=== PATIENT | male | born 1945 | race African-American/Black ===

== ENCOUNTER 2016-05-08 05:32 | Emergency (ER) | payer OTHER ==
[~2016-05-08] VITALS: Ht 185.4 cm; Wt 101.2 kg
--- NOTE | ~2016-05-08 | EKG ---
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
[~2016-05-08 05:32] MED LIST: ACETAMINOPHEN325 M1 PO; AMLODIPINE BESY10 MG PO; AMOXICILLIN/POTASSIU PO; ARANESP100 MCG/0.; ASPIRIN EC81 M1 PO; CALCIUM OYSTER500 MG PO; CARDURA4 MG PO; CARVEDILOL3.125 MG PO; COLACE 100 MG100 MG PO; CRESTOR40 MG PO; DIOVAN320 MG PO; FUROSEMIDE 40 M40 M1 PO; HUMALOG100 UNIT/1 SC; LANTUS SC; LISINOPRIL40 MG PO; NEXIUM20 M1 PO; NITROGLYCERIN0.4 MG SL; VITAMIN D400 UNI4 PO; [UNRECOGNIZED DRUG - OTHER]
[2016-05-08 06:22] LABS: HEMATOCRIT 33.1 % (42.0-52.0); HEMOGLOBIN 10.8 gm/dL (14.0-18.0); MCHC 32.7 % (28.0-37.0); PLATELET COUNT 146 thou/uL (150-400); RDW 16.1 % (10.5-14.5); WBC 14.8 thou/uL (4.0-11.0)
[2016-05-08 06:23] LABS: MANUAL DIFF YES
[2016-05-08 06:33] LABS: CALCIUM 8.9 mg/dL (8.5-10.1); CREATININE 2.3 mg/dL (0.6-1.3); POTASSIUM 4.7 mmol/L (3.5-5.1)
[2016-05-08 06:45] LABS: ABSOLUTE NEUTROPHILS 12.4 thou/uL (1.4-8.2); MAGNESIUM 1.6 mg/dL (1.8-2.4); TOTAL CELL COUNT 100
[2016-05-08 06:46] LABS: ANISOCYTOSIS 1+
[2016-05-08 07:34] LABS: URINE BILIRUBIN NEGATIVE (Negative); URINE BLOOD TRACE (Negative); URINE COLOR YELLOW; URINE GLUCOSE-RANDOM* NEGATIVE (Negative); URINE KETONES NEGATIVE (Negative); URINE LEUKOCYTES-REFLEX NEGATIVE (Negative); URINE PROTEIN (DIPSTICK) 1+ (Negative); URINE UROBILINOGEN 0.2 E.U./dl (0.2-1.0)
[2016-05-08] MEDS ORDERED: LASIX 40 MG TAB40 MG PO (07:41)
[2016-05-08] MEDS ORDERED: IRON325 PO (07:42)
[2016-05-08] MEDS ORDERED: ALLOPURINOL 10100 M1 PO (07:42)
[2016-05-08] MEDS ORDERED: ROCALTROL0.25 MCG PO (07:42)
[2016-05-08 08:13] LABS: SQUAMOUS 4-10 Moderate /LPF (0-3)
[2016-05-08 08:14] LABS: CASTS None Seen /LPF (None Seen); CRYSTALS None Seen /LPF (None Seen); URINE RBC 0-2 Rare /HPF (0-2); URINE WBC-REFLEX 0-5 Rare /HPF (0-5)
[2016-05-08 09:08] VITALS: BP 158/60
[2016-06-08] MEDS ORDERED: KEFLEX500 MG PO (09:16)
[2016-06-28] MEDS ORDERED: NORVASC5 MG PO (13:35)
[2016-06-28] MEDS ORDERED: LAC-HYDRIN FIV113 GM TOP (13:35)
[2016-06-28] MEDS ORDERED: DULCOLAX5 MG PO (13:36)
[2016-06-28] MEDS ORDERED: VITAMIN D2000 UNIT PO (13:37)
[2016-06-28] MEDS ORDERED: COZAAR 25 MG TA25 M1 PO (13:40)
[2016-06-28] MEDS ORDERED: CRESTOR40 MG PO (13:41)
[2016-06-28] MEDS ORDERED: NITROGLYCERIN0.4 MG SUBLING (13:41)
[2016-06-28] MEDS ORDERED: FLOXIN OTI0.3 %/5 M1 OT (13:41)
== END 2016-05-08 09:09 | disposition home or self-care (01) ==
LOC: ER 05:32
PROVIDERS: Emergency Medicine
DX: N18.9 Chronic kidney disease, unspecified (principal); E16.2 Hypoglycemia, unspecified; I47.2 Ventricular tachycardia

== ENCOUNTER 2016-08-02 10:05 | Emergency (ER) | payer OTHER ==
[~2016-08-02] VITALS: Ht 185.4 cm; Wt 101.2 kg
[~2016-08-02 10:05] MED LIST changes: +ALLOPURINOL 10100 M1 PO; +COZAAR 25 MG TA25 M1 PO; +DULCOLAX5 MG PO; +FLOXIN OTI0.3 %/5 M1 OT; +IRON325 PO; +KEFLEX500 MG PO; +LAC-HYDRIN FIV113 GM TOP; +LASIX 40 MG TAB40 MG PO; +NITROGLYCERIN0.4 MG SUBLING; +NORVASC5 MG PO; +ROCALTROL0.25 MCG PO; +VITAMIN D2000 UNIT PO
[2016-08-02 11:31] LABS: ABSOLUTE NEUTROPHILS 6.3 thou/uL (1.4-8.2); BASOPHILS 1.1 % (0.0-2.0); EOSINOPHILS 3.2 % (0.0-3.0); HEMATOCRIT 29.7 % (42.0-52.0); LYMPHOCYTES 12.2 % (24.0-44.0); MANUAL DIFF NO; MCH 29.9 pg (26.0-34.0); MCHC 33.7 g/dL (28.0-37.0); MCV 88.9 fL (80.0-100.0); MONOCYTES 7.7 % (1.0-8.0); PLATELET COUNT 156 thou/uL (150-400); POLYS 75.8 % (36.0-66.0); RBC 3.34 mil/uL (4.50-6.00); RDW 13.3 % (10.5-14.5); WBC 8.3 thou/uL (4.0-11.0)
[2016-08-02 11:37] LABS: CALCIUM 8.4 mg/dL (8.5-10.1); CREATININE 2.4 mg/dL (0.6-1.3); POTASSIUM 4.2 mmol/L (3.5-5.1)
[2016-08-02 11:48] LABS: ALBUMIN 2.5 g/dL (3.4-5.0); TOTAL BILIRUBIN 0.2 mg/dL (<0.1-1.0); TOTAL PROTEIN 5.9 g/dL (6.4-8.2)
[2016-08-02 12:12] LABS: CLARITY CLOUDY; COLOR RED; TOTAL VOLUME 15 mL
[2016-08-02 12:36] LABS: BF NUCLEATED CELLS 2581; BF RBC 8599
[2016-08-02 13:16] LABS: BF NEUTROPHILS 83; MANUAL DIFF YES
[2016-08-02 13:48] VITALS: BP 144/66
[2016-08-03 03:06] LABS: BF CRYSTALS None seen (None seen)
== END 2016-08-02 13:49 | disposition home or self-care (01) ==
LOC: ER 10:05
PROVIDERS: Physician Assistant
DX: M77.52 Other enthesopathy of left foot and ankle (principal); E11.9 Type 2 diabetes mellitus without complications; I10 Essential (primary) hypertension; E78.00 Pure hypercholesterolemia, unspecified; Z87.891 Personal history of nicotine dependence; Z79.4 Long term (current) use of insulin

== ENCOUNTER → 2016-08-20 | Outpatient (CLI) | payer OTHER | LOC: HYPER 07:09 | DX: E11.621 Type 2 diabetes mellitus with foot ulcer (principal); L97.421 Non-pressure chronic ulcer of left heel and midfoot limited to breakdown of skin; I70.245 Atherosclerosis of native arteries of left leg with ulceration of other part of foot; I10 Essential (primary) hypertension; E78.00 Pure hypercholesterolemia, unspecified; Z87.891 Personal history of nicotine dependence ==

== ENCOUNTER → 2016-09-07 | Outpatient (CLI) | payer OTHER | LOC: HYPER 08-27 07:09 | DX: E11.621 Type 2 diabetes mellitus with foot ulcer (principal); L97.421 Non-pressure chronic ulcer of left heel and midfoot limited to breakdown of skin; I70.245 Atherosclerosis of native arteries of left leg with ulceration of other part of foot; I10 Essential (primary) hypertension; E78.00 Pure hypercholesterolemia, unspecified; Z79.4 Long term (current) use of insulin; Z87.891 Personal history of nicotine dependence ==

== ENCOUNTER → 2016-09-30 | Outpatient (CLI) | payer OTHER | LOC: HYPER 07:05 | DX: E11.621 Type 2 diabetes mellitus with foot ulcer (principal); L97.422 Non-pressure chronic ulcer of left heel and midfoot with fat layer exposed; I70.245 Atherosclerosis of native arteries of left leg with ulceration of other part of foot; Z79.4 Long term (current) use of insulin; I10 Essential (primary) hypertension; E78.00 Pure hypercholesterolemia, unspecified; Z87.891 Personal history of nicotine dependence ==

== ENCOUNTER → 2016-10-21 | Outpatient (CLI) | payer OTHER | LOC: HYPER 10-14 14:20 | DX: E11.621 Type 2 diabetes mellitus with foot ulcer (principal); L97.422 Non-pressure chronic ulcer of left heel and midfoot with fat layer exposed; I70.244 Atherosclerosis of native arteries of left leg with ulceration of heel and midfoot; Z79.4 Long term (current) use of insulin; I10 Essential (primary) hypertension; E78.00 Pure hypercholesterolemia, unspecified; Z87.891 Personal history of nicotine dependence ==

== ENCOUNTER → 2016-11-09 | Outpatient (CLI) | payer OTHER | LOC: HYPER 06:56 | DX: E11.621 Type 2 diabetes mellitus with foot ulcer (principal); L97.422 Non-pressure chronic ulcer of left heel and midfoot with fat layer exposed; I70.245 Atherosclerosis of native arteries of left leg with ulceration of other part of foot; I10 Essential (primary) hypertension; E78.00 Pure hypercholesterolemia, unspecified; Z79.4 Long term (current) use of insulin; Z87.891 Personal history of nicotine dependence ==

== ENCOUNTER → 2016-11-23 | Outpatient (CLI) | payer OTHER | LOC: HYPER 07:07 | DX: E11.621 Type 2 diabetes mellitus with foot ulcer (principal); L97.422 Non-pressure chronic ulcer of left heel and midfoot with fat layer exposed; I70.245 Atherosclerosis of native arteries of left leg with ulceration of other part of foot; I10 Essential (primary) hypertension; E78.00 Pure hypercholesterolemia, unspecified; Z79.4 Long term (current) use of insulin; Z87.891 Personal history of nicotine dependence ==

== ENCOUNTER → 2016-12-08 | Outpatient (CLI) | payer OTHER | LOC: HYPER 07:00 | DX: E11.621 Type 2 diabetes mellitus with foot ulcer (principal); L97.422 Non-pressure chronic ulcer of left heel and midfoot with fat layer exposed; I70.244 Atherosclerosis of native arteries of left leg with ulceration of heel and midfoot; I10 Essential (primary) hypertension; E78.00 Pure hypercholesterolemia, unspecified; Z87.891 Personal history of nicotine dependence; Z79.4 Long term (current) use of insulin ==

== ENCOUNTER 2017-02-28 08:31 | Inpatient (IN) | payer OTHER ==
[~2017-02-28] VITALS: Ht 185.4 cm; Wt 95.7 kg
[2017-02-28 08:40] VITALS: BP 190/81
[2017-02-28 09:22] LABS: ABSOLUTE NEUTROPHILS 16.3 thou/uL (1.4-8.2); BASOPHILS 0.5 % (0.0-2.0); EOSINOPHILS 0.2 % (0.0-3.0); HEMATOCRIT 34.2 % (42.0-52.0); HEMOGLOBIN 11.3 gm/dL (14.0-18.0); MCH 29.6 pg (26.0-34.0); MCHC 33.2 g/dL (28.0-37.0); MCV 89.3 fL (80.0-100.0); MONOCYTES 7.1 % (1.0-8.0); PLATELET COUNT 138 thou/uL (150-400); POLYS 87.2 % (36.0-66.0); RBC 3.83 mil/uL (4.50-6.00); RDW 13.9 % (10.5-14.5); WBC 18.7 thou/uL (4.0-11.0)
[2017-02-28 09:30] LABS: MANUAL DIFF NO
[2017-02-28 09:33] LABS: CALCIUM 8.9 mg/dL (8.5-10.1); CREATININE 2.8 mg/dL (0.7-1.3); POTASSIUM 4.2 mmol/L (3.5-5.1)
[2017-02-28 09:40] LABS: ALBUMIN 3.3 g/dL (3.4-5.0); DIRECT BILIRUBIN 0.2 mg/dL (<0.1-0.3); TOTAL BILIRUBIN 0.9 mg/dL (<0.1-1.0); TOTAL PROTEIN 7.2 g/dL (6.4-8.2)
[2017-02-28 13:02] LABS: URINE BILIRUBIN NEGATIVE (Negative); URINE BLOOD 1+ (Negative); URINE COLOR YELLOW; URINE GLUCOSE-RANDOM* NEGATIVE (Negative); URINE KETONES NEGATIVE (Negative); URINE PROTEIN (DIPSTICK) 2+ (Negative); URINE SPECIFIC GRAVITY 1.015 (1.003-1.035); URINE UROBILINOGEN 0.2 E.U./dl (0.2-1.0)
[2017-02-28 13:03] LABS: URINE LEUKOCYTES-REFLEX TRACE (Negative)
[2017-02-28 13:08] LABS: CASTS None Seen /LPF (None Seen); CRYSTALS None Seen /LPF (None Seen); SQUAMOUS 0-3 Few /LPF (0-3)
[2017-02-28 13:09] LABS: URINE RBC 0-2 Rare /HPF (0-2); URINE WBC-REFLEX 6-15 Few /HPF (0-5)
[2017-02-28 14:54] VITALS: BP 183/65
[2017-02-28 16:23] VITALS: BP 205/82
[2017-02-28 16:30] VITALS: BP 204/75
[2017-02-28 20:00] VITALS: BP 172/64
[2017-03-01 00:30] VITALS: BP 159/100
[2017-03-01 03:05] LABS: GLYCOHEMOGLOBIN (HGB A1C) 6.1 % (4.8-5.6)
[2017-03-01 04:30] VITALS: BP 157/64
[2017-03-01 06:15] LABS: HEMATOCRIT 31.6 % (42.0-52.0); HEMOGLOBIN 10.4 gm/dL (14.0-18.0); MCH 29.2 pg (26.0-34.0); MCV 88.6 fL (80.0-100.0); PLATELET COUNT 130 thou/uL (150-400); RBC 3.57 mil/uL (4.50-6.00); RDW 14.2 % (10.5-14.5); WBC 17.2 thou/uL (4.0-11.0)
[2017-03-01 06:18] LABS: MANUAL DIFF YES
[2017-03-01 06:25] LABS: CALCIUM 8.4 mg/dL (8.5-10.1); CREATININE 2.9 mg/dL (0.7-1.3); POTASSIUM 4.3 mmol/L (3.5-5.1)
[2017-03-01 09:47] LABS: ABSOLUTE NEUTROPHILS 15.7 thou/uL (1.4-8.2); PLATELET ESTIMATE NORMAL; TOTAL CELL COUNT 100
[2017-03-01 15:55] VITALS: BP 165/90
[2017-03-02 04:37] VITALS: BP 132/57
[2017-03-02 08:55] VITALS: BP 124/63
[2017-03-02 16:13] VITALS: BP 139/72
[2017-03-02 19:34] VITALS: BP 152/71
[2017-03-03 03:22] VITALS: BP 138/61
[2017-03-03 07:00] LABS: ABSOLUTE NEUTROPHILS 5.6 thou/uL (1.4-8.2); BASOPHILS 0.6 % (0.0-2.0); EOSINOPHILS 2.3 % (0.0-3.0); HEMOGLOBIN 10.1 gm/dL (14.0-18.0); LYMPHOCYTES 14.3 % (24.0-44.0); MCH 29.8 pg (26.0-34.0); MCHC 33.7 g/dL (28.0-37.0); MCV 88.3 fL (80.0-100.0); MONOCYTES 9.5 % (1.0-8.0); PLATELET COUNT 136 thou/uL (150-400); POLYS 73.3 % (36.0-66.0); RBC 3.39 mil/uL (4.50-6.00); RDW 14.2 % (10.5-14.5); WBC 7.6 thou/uL (4.0-11.0)
[2017-03-03 07:12] LABS: MANUAL DIFF NO
[2017-03-03 07:17] LABS: CALCIUM 8.9 mg/dL (8.5-10.1); CREATININE 3.4 mg/dL (0.7-1.3); POTASSIUM 4.4 mmol/L (3.5-5.1)
[2017-03-03 07:51] VITALS: BP 155/74
[2017-03-03] MEDS ORDERED: KEFLEX500 M1 PO (09:08)
[2017-03-03 12:55] VITALS: BP 155/74
== END 2017-03-03 14:41 | disposition home or self-care (01) | DRG 70 ==
LOC: ER 08:31 → EROBS 13:20 → 4E 13:20 → ENTRNSPT 03-03 14:28 → EDTRNSPTSTS 03-03 14:32 → 4E 03-03 14:41
PROVIDERS: Emergency Medicine; Family Medicine; Internal Medicine Endocrinology, Diabetes & Metabolism
DX: G93.40 Encephalopathy, unspecified (principal); N17.1 Acute kidney failure with acute cortical necrosis; N39.0 Urinary tract infection, site not specified; E78.00 Pure hypercholesterolemia, unspecified; I12.9 Hypertensive chronic kidney disease with stage 1 through stage 4 chronic kidney disease, or unspecified chronic kidney disease; E11.22 Type 2 diabetes mellitus with diabetic chronic kidney disease; N18.9 Chronic kidney disease, unspecified; I25.10 Atherosclerotic heart disease of native coronary artery without angina pectoris; E11.65 Type 2 diabetes mellitus with hyperglycemia; R15.9 Full incontinence of feces; J34.89 Other specified disorders of nose and nasal sinuses; Z79.899 Other long term (current) drug therapy; Z95.1 Presence of aortocoronary bypass graft; Z79.82 Long term (current) use of aspirin; Z79.4 Long term (current) use of insulin
CPT/HCPCS: 10183

== ENCOUNTER 2017-11-09 11:03 | Inpatient (IN) | payer OTHER ==
[~2017-11-09] VITALS: Ht 185.4 cm; Wt 97.0 kg
--- NOTE | ~2017-11-09 | HC ---
[facility] [place] [address] CONSULTATION Name: CHRISTINE MOHR Room #: 224-P [facility] IN ..#: [id number] Admission: 11/09/17 Attend Phys: Albaro Smart MD Discharge: Date of : 45 Report #: [id number] THIS REPORT FOR: //name// CC: [facility] physician/PCP Albaro Smart DATE OF SERVICE: 11/09/2017 REASON FOR CONSULTATION: Gangrene and necrosis of the left great toe. HISTORY OF PRESENT ILLNESS: This is a 72-year-old male patient, admitted through the [facility], has developed progressive necrosis of his left great toe. He denies any pain associated with this or any fever or chills, but he also has signs of ischemia involving the more proximal areas of the foot as well. He has no specific complaints at this time. PAST MEDICAL HISTORY: Prior history of osteomyelitis, chronic renal insufficiency, diabetes, chronic kidney infection. ALLERGIES: None. MEDICATIONS: Include amlodipine, aspirin, atorvastatin, bisacodyl, carvedilol, hydrocodone, meropenem. FAMILY HISTORY: Noncontributory. ALLERGIES: None. SOCIAL HISTORY: Positive for past alcohol use, past cigarette smoker. REVIEW OF SYSTEMS: CONSTITUTIONAL: The patient denies fever, chills or weight loss. NEUROLOGICAL: The patient denies focal weakness. ENT: The patient denies earache, nasal drainage or sore throat. CARDIOVASCULAR: The patient denies chest pain, palpitations, diaphoresis. PULMONARY: The patient denies cough, shortness of breath. GASTROINTESTINAL: The patient denies nausea, vomiting, diarrhea or abdominal pain. ORTHOPEDIC: The patient denies pain, but is aware of the ulceration and necrosis of his left great toe. Other systems in a 14-point review of systems are negative. PHYSICAL EXAMINATION: VITAL SIGNS: At this time include pulse 72, respiratory rate of 18, blood pressure 162/70, temperature 98.7. GENERAL: Shows a chronically ill-appearing male patient who appears to be in [address] [address] CONSULTATION Name: CHRISTINE MOHR Room #: 224-P [facility] IN [facility]#: [id number] Admission: 11/09/17 Attend Phys: Albaro Smart MD Discharge: Date of : 45 Report #: [id number] distress. HEENT: Head normocephalic. Nose and throat are clear. NECK: Supple. LUNGS: Clear. HEART: Regular. ABDOMEN: Soft. Bowel sounds present. EXTREMITIES: Lower extremities demonstrate diminished distal pulses. He has obvious gangrenous change of the left great toe with some ischemic change on the dorsal aspect of the left foot. These areas are nontender. There is minimal odor at this time. LABORATORY DATA: Includes sodium 135, potassium 4.4, chloride 100, CO2 of 23, BUN 46, creatinine 3.9, glucose of 146, total protein 9.2, albumin 3.2. White blood cell count 14.1 with a hemoglobin of 10.7. X-ray evaluation of the foot demonstrates soft tissue defect involving the tip of the left first toe with underlying distal phalangeal bone destruction suggesting osteomyelitis. Arterial Dopplers demonstrate inflow disease throughout the left lower extremity and there are 2 probable focal stenoses of the left superficial femoral artery, monophasic blood flow in the feet bilaterally. CLINICAL IMPRESSION: 1. Gangrenous change involving the left great toe and left foot. 2. Diabetes mellitus. 3. Osteomyelitis. 4. Severe peripheral arterial disease. RECOMMENDATIONS: At this point in time, we will recommend quarter strength Dakin moist gauze dressing. He is on intravenous antibiotic therapy. We will need to see about revascularization. He will likely require amputation of the toe and a portion of the foot; however, I think it would be prudent to maximize his vascular status prior to any surgical injury. I appreciate being asked to see the patient in consultation. <ELECTRONICALLY SIGNED> By: Cody Cordova MD 11/14/171928 23 2230 Cody Cordova MD /nt
--- NOTE | ~2017-11-09 | HC ---
[facility] [place] [address] CONSULTATION Name: CHRISTINE MOHR Room #: 206-P [facility] IN ..#: [id number] Admission: 11/09/17 Attend Phys: Albaro Smart MD Discharge: Date of : 45 Report #: [id number] THIS REPORT FOR: //name// CC: [facility] physician/PCP Albaro Smart DATE OF SERVICE: 11/10/2017 CHIEF COMPLAINT: Left great toe ulceration and wound. HISTORY OF PRESENT ILLNESS: The patient is a pleasant 72-year-old gentleman seen today for evaluation of his left great toe. The patient reports increased discoloration and pain over the last several days. It is difficult for him to give me a specific date as when this started bothering him. Per the chart review, it sounds like it has been several months. More recently, he has noted that it has been malodorous and more painful and he has had some sloughing of the skin as well of his toenail. PAST MEDICAL HISTORY: Significant for anemia, chronic kidney disease, chronic renal insufficiency, diabetes, hypertensive urgency, hyperglycemia, leukocytosis, osteomyelitis, urinary tract infection, V tach, coronary artery disease, type 2 diabetes, hypertension. SOCIAL HISTORY: The patient reports that he resides at home with his daughter. ALLERGIES: No known drug allergies. CURRENT MEDICATIONS: Please see current MAR. PHYSICAL EXAMINATION: GENERAL: The patient is alert and oriented, answering questions appropriately. He has just returned from the Interventional Radiology suite following his vascular stent placement. VITAL SIGNS: Most recent vitals: Temperature 37.1, pulse 64, respirations 16, BP 160/65, pulse ox 100% on no supplemental oxygen. EXTREMITIES: Examination of the bilateral lower extremities reveals no significant palpable pulses. Per note review, it sounds like these are monophasic on ultrasound. Right groin reveals dressing consistent with his recent vascular access. He reports no pain or tenderness about the hips or knees. He reports the left foot is painful primarily about the great toe. He has diminished sensation bilaterally to light touch. Minimal flexion and extension of the toes on both feet. The left great toe demonstrates a necrotic gangrenous type tissue, sloughing of the skin and dermal layer, missing nail plate, limited motion. This is malodorous and has a complex wound pattern. The second through fifth toes appear to have no obvious ulcer. There is no obvious plantar based ulcer. Slow capillary refill is noted. Foot has thickened skin. [address] [address] CONSULTATION Name: CHRISTINE MOHR Room #: 206-P [facility] IN [facility]#: [id number] Admission: 11/09/17 Attend Phys: Albaro Smart MD Discharge: Date of : 45 Report #: [id number] IMAGING: Lower extremity MRI and radiographs reveal abnormal signal in the distal and proximal phalanx of the great toe consistent with osteomyelitis and ulceration of the soft tissues. No soft tissue abscess or fluid collection is noted within the foot. Lower extremity ultrasound revealed focal stenosis in the left superficial femoral artery, which has recently been stented. IMPRESSION: 1. Left great toe ulceration and osteomyelitis. 2. Peripheral vascular disease. 3. Multiple medical comorbidities. PLAN: I reviewed potential treatment options with the patient. He has been seen by multiple consultants. It sounds like he has also seen Vascular Surgery. Discussed with the gangrenous changes noted on his foot that I would recommend a great toe amputation. Hopefully, with his stenting, this can help reestablish blood flow to his foot to a more significant degree and allow him to heal this wound. We discussed that there is the potential for his infection to spread further or for him to have nonhealing of these tissues that could require further care and/or surgical treatment including debridement. We discussed wound care's involvement. We also discussed that if this did not heal, one may need to consider amputation at a higher level. The patient is aware of this. We discussed that this can potentially be done over the next several days if he desires. He has an upcoming PICC line that is scheduled to be placed later this evening. <ELECTRONICALLY SIGNED> By: Hakeem Geller MD 11/12/17 1048 1638 2319 Hakeem Geller MD /nt
--- NOTE | ~2017-11-09 | HC ---
[facility] [place] [address] CONSULTATION Name: CHRISTINE MOHR Room #: 431-P [facility] IN ..#: [id number] Admission: 11/09/17 Attend Phys: Albaro Smart MD Discharge: Date of : 45 Report #: [id number] THIS REPORT FOR: //name// CC: FAM physician/PCP Albaro Smart DATE OF SERVICE: 11/09/2017 INFECTIOUS DISEASE CONSULTATION ATTENDING PHYSICIAN: Albaro Smart MD REASON FOR CONSULTATION: Left big toe infection, necrosis, antibiotic management. HISTORY OF PRESENT ILLNESS: A 72-year-old -[place] man is evaluated in the Emergency Room with a history of having had a left great toe infection, necrotic changes, discovered by patient's daughter on 10/27/2017. The patient appears not to have any major complaints. I wonder if he has some cognitive impairment. PAST MEDICAL HISTORY: Diabetes mellitus. Coronary artery bypass grafting in year 2001. Peripheral vascular disease. Hypertension. Dyslipidemia. Previous urinary tract infection. History of cardiac arrhythmias. History of hiatal hernia, cholelithiasis, asymptomatic. Colon diverticulosis. 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 SOCIAL HISTORY: See H and P, old records. FAMILY HISTORY: See H and P, old records. REVIEW OF SYSTEMS: Noncontributory. PHYSICAL EXAMINATION: GENERAL: Elderly man that appeared to be mildly encephalopathic. VITAL SIGNS: Temperature 98.7, pulse 72, respirations 18, BP 163/72, height 6 feet 1 inch, weight 212 pounds. HEENMT: Essentially within normal range. NECK: Supple. LUNGS: Clear. HEART: S1, S2. ABDOMEN: Soft, no masses or megaly. GENITALIA AND RECTAL EXAMINATION: Deferred. EXTREMITIES: Reveal necrotic blackish and denuded skin on the left big toe and no palpable pulses on the left foot. I cannot detect dorsalis pedis or [facility] [address] [place] [address] CONSULTATION Name: CHRISTINE MOHR Room #: 431-P [facility] IN [facility]#: [id number] Admission: 11/09/17 Attend Phys: Albaro Smart MD Discharge: Date of : 45 Report #: [id number] posterior tibialis on the right foot either. He does have lesions of onychogryphosis and significant callus formation on the right foot. LABORATORY DATA: Sodium 135, potassium 4, BUN 46, creatinine 3.9, glucose 146, albumin 3.2. WBC 14,100; hemoglobin 10.7 g/dL, platelets 247,000. MEDICATIONS: He is on treatment with bisacodyl, aspirin, amlodipine, atorvastatin, subcutaneous heparin, insulin glargine, doxazosin, carvedilol, insulin lispro per sliding scale, p.r.n. glucose, glucagon, polyethylene glycol, p.r.n. ondansetron, vancomycin 2000 mg IV single dose given in the Emergency Room. ASSESSMENT: 1. Necrotic left big toe with superimposed infection. 2. Peripheral vascular disease. 3. Diabetes mellitus. 4. Chronic kidney disease. 5. History of previous cerebrovascular accident. SUGGESTIONS: Recommend continue local wound care. Vancomycin completely appropriate choice of antibiotic. We will add meropenem 500 mg IV every [address] Smart, thank you for requesting my suggestions and I will continue to follow the patient along with you. <ELECTRONICALLY SIGNED> By: Moose Mckee MD 11/10/17 1142 1550 1958 Moose Mckee MD /nt
--- NOTE | ~2017-11-09 | HC ---
[facility] [place] [address] CONSULTATION Name: ONURCHRISTINE Kenzie Room #: 206-P [facility] IN ..#: [id number] Admission: 11/09/17 Attend Phys: Albaro Smart MD Discharge: Date of : 45 Report #: [id number] THIS REPORT FOR: //name// CC: [facility] physician/PCP Albaro Smart DATE OF SERVICE: 11/10/2017 REASON FOR CONSULTATION: Elevated creatinine. HISTORY OF PRESENT ILLNESS: This is a 72-year-old male with some longstanding diabetes mellitus. He was admitted with an infected left great toe. That has been evaluated. He has been put on broad-spectrum antibiotics. He has some leukocytosis. We are asked to see him for an elevated creatinine level. Review of his labs shows creatinine level on admission yesterday was 3.9, today it is 3.7. He has several labs on his chart dating back to 2010, at which time his creatinine was 2.8, in 03/2017 it was 3.4. He has longstanding diabetes mellitus. He has previously diagnosed chronic kidney disease and follows with Dr. Hess at [facility]. His daughter is present in the room and shows me on her phone that his labs as of 07/2017 revealed a creatinine level of 3.25. He has been managed with antihypertensive medications. He has correctly been told that he did not yet need dialysis, but his kidneys do not have much in the way of reserve. The patient denies any problems voiding urine, although his daughter says that he is incontinent at night and wears some briefs. He has not had recent problems with edema. No hematuria. PAST MEDICAL HISTORY: Longstanding diabetes and hypertension. He has a history of remote coronary artery bypass graft surgery. He has also had a stroke, which sounds like it was about 5-6 months ago. The daughter is unaware of any residual deficits and the patient is not a very good historian. I sense he might have some expressive aphasia, although at times he speaks clearly. He has longstanding hypertension. He has had the chronic kidney disease as noted above. He has had prior diabetic foot infections. MEDICATIONS: On admission include amlodipine 5 mg daily, losartan 25 mg daily, doxazosin 4 mg daily, carvedilol 3.125 mg daily, aspirin 81 mg daily, Lantus 28 units daily, iron 325 mg b.i.d., vitamin D3 at 2000 units daily, Crestor 40 mg daily, Humalog 10 units with meals. ALLERGIES: No known medical allergies. FAMILY HISTORY: Negative for renal disease. SOCIAL HISTORY: The patient is retired. He currently lives with his daughter who accompanies him at this time. He is . 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 He was a former smoker. REVIEW OF SYSTEMS: Appetite has been fairly good. Denies nausea or vomiting. He denies chest pain or palpitations. Occasional dyspnea. Occasional lower extremity edema. Has incontinence of urine at night. Unaware of fevers, chills or sweats. PHYSICAL EXAMINATION: VITAL SIGNS: Blood pressure 160/65, heart rate 64, temperature 97.8, oxygen saturation 99%. HEENT: Reveals pupils are equal and reactive. Sclerae nonicteric. Oral mucosa is moist. NECK: Supple, no JVD. CHEST: Fairly clear bilaterally. HEART: Has a regular rate and rhythm. ABDOMEN: Has active bowel sounds, is soft, nontender at this time. I cannot palpate organomegaly or masses. EXTREMITIES: Show the left lower extremity is warmer than the right. There is no peripheral edema. The left foot was just rewrapped, I did not re-undress it. I cannot palpate pedal pulses on either side. LABORATORY DATA: From today, sodium 136, potassium 4.7, chloride 106, bicarbonate 23, BUN 47, creatinine 3.7, glucose 117, calcium 8.3 on admission, total protein 9.2, albumin 3.2. Normal liver function tests. Iron saturation 32%. Hemoglobin 10.7, hematocrit 31.4, white count 14.1, platelets 247,000. No urinalysis on admission. ASSESSMENT: 1. Diabetic foot infection, on broad spectrum antibiotics. Decisions are being made about what care will be attempted on this. 2. Chronic kidney disease stage 4, is likely due to diabetic nephropathy. He has previously diagnosed proteinuria. We will want to quantify the proteinuria. He has prior had a little acute worsening related to his current diabetic foot infection. He has not needed dialysis and he is already followed chronically at [facility] and he can certainly continue that upon discharge. We will quantify proteinuria. Also, I want to check for a paraprotein as his admitting globulin fraction was 6 grams on his blood. 3. Hypertension. Blood pressures remain full. We will make sure we titrate his medications to get this under a little better control. Sodium restriction in diet will also be important. 4. Longstanding diabetes mellitus with nephropathy and peripheral neuropathy. 5. History of coronary artery disease, prior bypass. No current symptoms. 6. Recent cerebrovascular accident about 5 months ago with what appears to be some expressive aphasia. 7. Anemia, likely some component of chronic kidney disease. We will check an erythropoietin level as he may benefit from supplemental erythropoietin. [facility] [address] [place] [address] CONSULTATION Name: CHRISTINE MOHR Room #: 206-P [facility] IN M.R.#: [id number] Admission: 11/09/17 Attend Phys: Albaro Smart MD Discharge: Date of : 45 Report #: [id number] 8. Chronic debility. PLAN: 1. I will recheck labs in the morning. 2. Check erythropoietin level. 3. Check kappa lambda light chain ratio. 4. Quantify proteinuria. 5. Improve blood pressure going forward. 6. Sodium restricted diet. 7. We will follow along the care of this pleasant patient. By: [id number] Nino Mcmanus MD /nt
--- NOTE | ~2017-11-09 | O ---
[facility] [place] [address] OPERATIVE REPORT Name: CHRISTINE MOHR Room #: 224-P [facility] IN M.R.#: [id number] Admission: 11/09/17 Attend Phys: Albaro Smart MD Discharge: Date of : 45 Report #: [id number] THIS REPORT FOR: //name// CC: [facility] physician/PCP Albaro Smart PREOPERATIVE DIAGNOSIS: Left great toe osteomyelitis, forefoot ulcerations, peripheral vascular disease. POSTOPERATIVE DIAGNOSIS: Left great toe osteomyelitis, forefoot ulcerations, peripheral vascular disease. PROCEDURE PERFORMED: Left great toe amputation. SURGEON: Hakeem Geller MD ANESTHESIA: General. FLUIDS: 400 mL crystalloid. Tourniquet was not utilized for this procedure. DESCRIPTION OF PROCEDURE: After proper identification of the patient and operative site in preoperative holding area, the operative site was signed by myself. Prophylactic antibiotics given. After reviewing treatment options for the patient's great toe osteomyelitis, he elected for a great toe amputation. He did not wish to proceed with any sort of metatarsal or transmetatarsal type amputation, even though he has had a fifth toe/ray amputation in the past. The patient was brought back to the operative suite after induction of satisfactory general anesthesia per LMA. Left foot was sterilely prepped and draped in the usual manner. Dry gangrene was noted with extensive wound around the toe. MRI demonstrated osteomyelitis of the distal and proximal phalanx. At this point, a fishmouth type incision was planned in healthy skin tissue. Full thickness flaps were developed and subperiosteal dissection was carried out about the proximal phalanx. There appeared to be no subcutaneous abscesses in the area of the surgical incisions. These areas were thoroughly irrigated with normal saline. Punctate bleeding was noted from the flaps. This area was irrigated with antibiotic irrigant. The first metatarsal head otherwise appeared normal without any significant softening or signs of infection. After thorough irrigation, this area was then closed with 2-0 nylon. Sterile dressing was applied. He was awakened and transferred to the recovery room in stable condition. <ELECTRONICALLY SIGNED> By: Hakeem Geller MD 11/13/17 1317 1046 1133 Hakeem Geller MD /nt
[~2017-11-09 11:03] MED LIST changes: -HUMALOG100 UNIT/1 SUBQ; -PLAVIX 75 MG TA75 M1 PO
[2017-11-09 11:13] VITALS: BP 157/72
[2017-11-09 11:35] LABS: ABSOLUTE NEUTROPHILS 12.2 thou/uL (1.4-8.2); BASOPHILS 0.7 % (0.0-2.0); EOSINOPHILS 0.7 % (0.0-3.0); HEMATOCRIT 31.4 % (42.0-52.0); HEMOGLOBIN 10.7 gm/dL (14.0-18.0); LYMPHOCYTES 6.4 % (24.0-44.0); MCH 29.2 pg (26.0-34.0); MONOCYTES 5.7 % (1.0-8.0); PLATELET COUNT 247 thou/uL (150-400); POLYS 86.5 % (36.0-66.0); RBC 3.66 mil/uL (4.50-6.00); RDW 13.7 % (10.5-14.5); WBC 14.1 thou/uL (4.0-11.0)
[2017-11-09 11:43] LABS: CALCIUM 9.8 mg/dL (8.5-10.1); CREATININE 3.9 mg/dL (0.7-1.3); POTASSIUM 4.4 mmol/L (3.5-5.1)
[2017-11-09 11:49] LABS: ALBUMIN 3.2 g/dL (3.4-5.0); TOTAL BILIRUBIN 0.6 mg/dL (<0.1-1.0); TOTAL PROTEIN 9.2 g/dL (6.4-8.2)
[2017-11-09] MEDS ORDERED: HUMALOG100 UNIT/1 SUBQ (12:09)
[2017-11-09 12:22] VITALS: BP 169/74
[2017-11-09 13:39] VITALS: BP 163/72
[2017-11-09 20:36] VITALS: BP 164/57
[2017-11-10 05:07] VITALS: BP 160/65
[2017-11-10 06:01] LABS: HEMATOCRIT 25.4 % (42.0-52.0); MCH 29.1 pg (26.0-34.0); MCHC 34.1 g/dL (28.0-37.0); MCV 85.2 fL (80.0-100.0); RBC 2.98 mil/uL (4.50-6.00); RDW 13.6 % (10.5-14.5); WBC 11.6 thou/uL (4.0-11.0)
[2017-11-10 06:05] LABS: HEMOGLOBIN 8.7 gm/dL (14.0-18.0)
[2017-11-10 06:13] LABS: CALCIUM 8.3 mg/dL (8.5-10.1); CREATININE 3.7 mg/dL (0.7-1.3); POTASSIUM 4.7 mmol/L (3.5-5.1)
[2017-11-10 08:00] VITALS: BP 160/65
[2017-11-10 14:40] LABS: OBSERVED RETIC COUNT 0.7 % (0.6-2.6)
[2017-11-10 14:45] LABS: % SATURATION 32 % (20-39); IRON 37 ug/dL (65-175); TIBC 115 ug/dL (250-450)
[2017-11-10 16:42] VITALS: BP 163/69
[2017-11-10 19:35] VITALS: BP 168/54
[2017-11-11 04:00] LABS: ALBUMIN 2.2 g/dL (3.4-5.0); CALCIUM 8.5 mg/dL (8.5-10.1); CREATININE 3.2 mg/dL (0.7-1.3); PHOSPHORUS 2.9 mg/dL (2.5-4.9); POTASSIUM 4.2 mmol/L (3.5-5.1)
[2017-11-11 04:04] LABS: ABSOLUTE NEUTROPHILS 8.4 thou/uL (1.4-8.2); BASOPHILS 0.8 % (0.0-2.0); EOSINOPHILS 1.4 % (0.0-3.0); HEMATOCRIT 25.8 % (42.0-52.0); LYMPHOCYTES 7.8 % (24.0-44.0); MCHC 34.8 g/dL (28.0-37.0); MCV 86.1 fL (80.0-100.0); MONOCYTES 6.9 % (1.0-8.0); PLATELET COUNT 213 thou/uL (150-400); POLYS 83.1 % (36.0-66.0); RDW 13.5 % (10.5-14.5); WBC 10.1 thou/uL (4.0-11.0)
[2017-11-11 04:45] VITALS: BP 156/53
[2017-11-11 07:20] VITALS: BP 180/63
[2017-11-11] MEDS ORDERED: PLAVIX 75 MG TA75 M1 PO (08:16)
[2017-11-11 15:55] VITALS: BP 186/75
[2017-11-11 18:10] LABS: PROT/CREAT RATIO 1.8; URINE PROTEIN-RANDOM* 126.9 mg/dL (<11.9)
[2017-11-11 19:16] VITALS: BP 168/61
[2017-11-12 05:13] VITALS: BP 164/73
[2017-11-12 07:32] VITALS: BP 184/82
[2017-11-12 15:08] LABS: KAPPA FREE LIGHT CHAINS 107.9 mg/L (3.3-19.4); KAPPA/LAMBDA RATIO 1.48 (0.26-1.65); LAMBDA FREE LIGHT CHAINS 73.1 mg/L (5.7-26.3)
[2017-11-12 17:26] VITALS: BP 169/57
[2017-11-12 20:02] VITALS: BP 167/69
[2017-11-13 07:55] VITALS: BP 161/75
[2017-11-13 09:08] LABS: BASOPHILS 0.9 % (0.0-2.0); EOSINOPHILS 1.5 % (0.0-3.0); HEMATOCRIT 25.8 % (42.0-52.0); HEMOGLOBIN 8.8 gm/dL (14.0-18.0); LYMPHOCYTES 8.2 % (24.0-44.0); MCH 29.3 pg (26.0-34.0); MCV 86.1 fL (80.0-100.0); MONOCYTES 7.8 % (1.0-8.0); PLATELET COUNT 203 thou/uL (150-400); POLYS 81.6 % (36.0-66.0); RDW 13.6 % (10.5-14.5); WBC 11.1 thou/uL (4.0-11.0)
[2017-11-13 09:16] LABS: ALBUMIN 2.2 g/dL (3.4-5.0); CALCIUM 8.7 mg/dL (8.5-10.1); CREATININE 2.9 mg/dL (0.7-1.3); MAGNESIUM 1.6 mg/dL (1.8-2.4); PHOSPHORUS 3.2 mg/dL (2.5-4.9); POTASSIUM 3.9 mmol/L (3.5-5.1)
[2017-11-13 20:00] VITALS: BP 161/71
[2017-11-14 08:12] VITALS: BP 176/77
[2017-11-14 10:11] LABS: ALBUMIN 2.1 g/dL (3.4-5.0); CALCIUM 8.8 mg/dL (8.5-10.1); CREATININE 3.1 mg/dL (0.7-1.3); PHOSPHORUS 3.3 mg/dL (2.5-4.9); POTASSIUM 4.1 mmol/L (3.5-5.1)
[2017-11-14 21:15] VITALS: BP 155/72
[2017-11-15 07:36] LABS: ABSOLUTE NEUTROPHILS 6.5 thou/uL (1.4-8.2); EOSINOPHILS 3.1 % (0.0-3.0); HEMATOCRIT 24.5 % (42.0-52.0); HEMOGLOBIN 8.4 gm/dL (14.0-18.0); LYMPHOCYTES 13.2 % (24.0-44.0); MCH 29.9 pg (26.0-34.0); MCHC 34.5 g/dL (28.0-37.0); MCV 86.6 fL (80.0-100.0); MONOCYTES 7.9 % (1.0-8.0); PLATELET COUNT 194 thou/uL (150-400); POLYS 74.8 % (36.0-66.0); RBC 2.82 mil/uL (4.50-6.00); RDW 13.5 % (10.5-14.5); WBC 8.7 thou/uL (4.0-11.0)
[2017-11-15 07:47] LABS: ALBUMIN 1.9 g/dL (3.4-5.0); CALCIUM 8.2 mg/dL (8.5-10.1); CREATININE 3.3 mg/dL (0.7-1.3); PHOSPHORUS 3.6 mg/dL (2.5-4.9); POTASSIUM 4.3 mmol/L (3.5-5.1)
[2017-11-15 08:25] VITALS: BP 142/66
[2017-11-15 13:35] VITALS: BP 142/66
[2017-11-15 18:24] VITALS: BP 142/66
== END 2017-11-15 18:50 | disposition home health service (06) | DRG 252 ==
LOC: ER 11:03 → 4E 11:58 → EROBS 11:58 → 4E 13:07 → 2N 11-10 16:19 → SICU 11-12 18:49
PROVIDERS: Emergency Medicine; Hospitalist; Internal Medicine; Internal Medicine Nephrology
PROC: 0Y6Q0Z0 Detachment at Left 1st Toe, Complete, Open Approach (ICD-10-PCS; 2017-11-10)
PROC: 047L34Z Dilation of Left Femoral Artery with Drug-eluting Intraluminal Device, Percutaneous Approach (ICD-10-PCS; principal; 2017-11-12)
DX: E11.52 Type 2 diabetes mellitus with diabetic peripheral angiopathy with gangrene (principal); E43 Unspecified severe protein-calorie malnutrition; I96 Gangrene, not elsewhere classified; N17.9 Acute kidney failure, unspecified; N18.4 Chronic kidney disease, stage 4 (severe); M86.8X8 Other osteomyelitis, other site; E78.00 Pure hypercholesterolemia, unspecified; D72.829 Elevated white blood cell count, unspecified; E78.5 Hyperlipidemia, unspecified; K57.90 Diverticulosis of intestine, part unspecified, without perforation or abscess without bleeding; E11.22 Type 2 diabetes mellitus with diabetic chronic kidney disease; Z60.2 Problems related to living alone; R29.6 Repeated falls; E11.69 Type 2 diabetes mellitus with other specified complication; I70.202 Unspecified atherosclerosis of native arteries of extremities, left leg; L97.529 Non-pressure chronic ulcer of other part of left foot with unspecified severity; E11.621 Type 2 diabetes mellitus with foot ulcer; I12.9 Hypertensive chronic kidney disease with stage 1 through stage 4 chronic kidney disease, or unspecified chronic kidney disease; E11.42 Type 2 diabetes mellitus with diabetic polyneuropathy; D64.9 Anemia, unspecified; I25.10 Atherosclerotic heart disease of native coronary artery without angina pectoris; Z95.1 Presence of aortocoronary bypass graft; Z87.891 Personal history of nicotine dependence; Z86.73 Personal history of transient ischemic attack (TIA), and cerebral infarction without residual deficits; Z79.82 Long term (current) use of aspirin; Z79.899 Other long term (current) drug therapy; Z68.28 Body mass index [BMI] 28.0-28.9, adult
CPT/HCPCS: 10081; 10084; 15002; 50010; 50101; 50386; 56525; 57091; 62110; 62900; 70005

== ENCOUNTER → 2017-11-09 | Outpatient (CLI) | payer OTHER ==
[~2017-11-09] MED LIST changes: +HUMALOG100 UNIT/1 SUBQ; +KEFLEX500 M1 PO; +PLAVIX 75 MG TA75 M1 PO
== END ==
LOC: HYPER 06:56
DX: I70.245 Atherosclerosis of native arteries of left leg with ulceration of other part of foot (principal); E11.621 Type 2 diabetes mellitus with foot ulcer; L97.522 Non-pressure chronic ulcer of other part of left foot with fat layer exposed; I10 Essential (primary) hypertension; E78.00 Pure hypercholesterolemia, unspecified; Z87.891 Personal history of nicotine dependence; Z79.4 Long term (current) use of insulin

== ENCOUNTER 2018-04-14 11:27 | Inpatient (IN) | payer OTHER ==
[~2018-04-14] VITALS: Ht 185.4 cm; Wt 89.9 kg
--- NOTE | ~2018-04-14 | HC ---
[facility] [place] [address] CONSULTATION Name: CHRISTINE MOHR Room #: 423-1 ADM IN M.R.#: [id number] Admission: 04/14/18 Attend Phys: Fortunato Conti MD Discharge: Date of : 45 Report #: [id number] THIS REPORT FOR: //name// CC: Nelsy Conti DATE OF SERVICE: 04/14/2018 REASON FOR CONSULTATION: Left third toe wound with infection. HISTORY OF PRESENT ILLNESS: The patient is a 72-year-old male who presented to the Emergency Department complaining of his left third toe wound that is not healing and is foul smelling. There is no one at the patient's bedside, reported that the toe has been looking abnormal for at least a few days. The medical chart was reviewed, which shows the patient apparently had some type of toenail clipping and his wound worsened and so he re-presented to the Emergency Department. Of note, he was treated with left first toe amputation in October for osteomyelitis. At some point, he was also treated with a fifth toe amputation as well. REVIEW OF SYSTEMS: MUSCULOSKELETAL: Denies other wounds. NEUROLOGIC: Denies numbness or tingling. PAST MEDICAL HISTORY: Obtained partially from the patient and partially from the medical record includes hypertension, diabetes, coronary artery disease, peripheral vascular disease. SOCIAL HISTORY: Denies using any ambulatory aids. Denies smoking or drinking alcohol. ALLERGIES: No known drug allergies. HOME MEDICATIONS: Include doxazosin, carvedilol, aspirin, insulin, ferrous sulfate, amlodipine, bisacodyl, rosuvastatin, and calcitriol. PAST SURGICAL HISTORY: Cardiac bypass, amputation of the left first toe and the fifth toe, and 2 stents placed apparently in his left lower extremity. LABORATORY DATA: Done on the day of admission, white blood cell count 10.4, hemoglobin 10.1, hematocrit 30, platelet count 235. Chemistry is grossly normal except for an elevated creatinine at 4.3. PHYSICAL EXAMINATION: GENERAL: The patient is alert and oriented. He interacts appropriately. He is a well-developed, well-nourished male, in no acute distress. He does report not [address] [address] CONSULTATION Name: CHRISTINE MOHR Kenzie Room #: 423-1 ADM IN .R.#: [id number] Admission: 04/14/18 Attend Phys: Fortunato Conti MD Discharge: Date of : 45 Report #: [id number] knowing a lot about his medical problems as his daughter takes care of his diabetes and most of his problems. VITAL SIGNS: Most recent vital signs show temperature of 36.9, heart rate 66, respiratory rate 14, blood pressure 151/59, pulse oximetry is 100% on room air. EXTREMITIES: Examination of his left lower extremity shows absence of the first and the fifth toes. The third toe has an abnormal appearance to the nail with foul odor. There is mild edema. No significant erythema. He has a 1+ dorsalis pedis pulse, I am unable to appreciate a posterior tibial pulse. He reports sensation is intact to light touch throughout his whole foot. He wiggles his toes and dorsiflexes and plantar flexes his ankle without pain. There is no tenderness to palpation. RADIOGRAPHS: AP, lateral and oblique of the left foot show absence of the great toe and absence of the fifth toe including the metatarsal. There is bony destruction at the distal portion of the phalanx of the third toe, some cortical disruption to the second and third proximal phalanx. On the third toe it appears that the distal phalanx is eroding. IMPRESSION AND PLAN: Left third toe wound with probable osteomyelitis. I recommend an MRI to further evaluate to determine if the infection extends into the other portions of the toes or the metatarsal. I will speak with my [facility] partner who is online merchandising manager this weekend and most likely the patient will require a toe amputation versus a forefoot amputation. I will also order a hemoglobin A1c. Questions were encouraged and answered to the best of my ability. I appreciate Wound Care and ID consults. By: 1659 19 Kelly Paulino MD /allyn
--- NOTE | ~2018-04-14 | O ---
[facility] [place] [address] OPERATIVE REPORT Name: CHRISTINE MOHR Room #: 225-P [facility] IN M.R.#: [id number] Admission: 04/14/18 Attend Phys: Fortunato Conti MD Discharge: Date of : 45 Report #: [id number] THIS REPORT FOR: //name// CC: Nelsy Conti DATE OF SERVICE: 04/18/2018 PREOPERATIVE DIAGNOSIS: Necrotic left toes. POSTOPERATIVE DIAGNOSIS: Necrotic left toes. PROCEDURE: Amputation remaining three toes, left foot. SURGEON: Gentry Plascencia MD INDICATIONS: This frail 72-year-old gentleman with diabetes and peripheral vascular disease has had problems with ischemic issues on the left foot in the past. He has already had amputation of the great toe and one of the lesser toes. Now, he has necrotic gangrenous changes of one more toe and some ischemic changes of the other 2 toes. We have discussed treatment options and elected to go ahead with amputation of the remaining three digits, hoping to achieve a satisfactory healing at the metatarsophalangeal level. I have discussed with the patient and his family that he certainly has peripheral vascular disease and may have difficulty healing at this level. We have discussed the option of a more proximal mid foot amputation or below-knee amputation. At this point, he is adamantly opposed to any further more proximal amputation and is hoping that removal of the remaining toes will be sufficient to allow adequate healing. The soft tissues do seem to be adequately perfused and I am hopeful that wound healing at this level will be possible. DESCRIPTION OF PROCEDURE: The patient was taken to the operating room where he was placed under brief general anesthetic. He was already on chronic IV antibiotics. The left lower leg, foot and ankle were meticulously prepped and draped. An Esmarch bandage was used around the foot for exsanguination and left at the mid calf as a gentle tourniquet. A fish mouth shaped incision was made across the dorsal and plantar aspect of the forefoot at the level of the metatarsophalangeal joint. The three remaining toes were amputated at the MP joint level leaving as much soft tissue as possible. This still resulted in a moderately tight closure and so the metatarsal heads were removed as well. The metatarsals were shortened only slightly. This allowed a loose safe soft tissue closure. The Esmarch bandage was removed. There was some bleeding at the skin margin, but no marked bleeding. No cautery or suture ligation was required. I think the perfusion seems adequate to allow soft tissue healing. The wound was copiously irrigated. The deeper tissues were closed with 2-0 Monocryl. The [address] [address] OPERATIVE REPORT Name: ONURCHRISTINE Kenzie Room #: 225-P [facility] IN M.R.#: [id number] Admission: 04/14/18 Attend Phys: Fortunato Conti MD Discharge: Date of : 45 Report #: [id number] skin was closed with skin myke. A sterile dressing was applied. The patient was awakened and returned to recovery in good condition. <ELECTRONICALLY SIGNED> By: Gentry Plascencia MD 04/19/18 0819 1145 1214 Gentry Plascencia MD /nt
--- NOTE | ~2018-04-14 | HC ---
[facility] [place] [address] CONSULTATION Name: CHRISTINE MOHR Room #: 423-1 ADM IN M.R.#: [id number] Admission: 04/14/18 Attend Phys: Fortunato Conti MD Discharge: Date of : 45 Report #: [id number] THIS REPORT FOR: //name// CC: Nelsy Conti DATE OF SERVICE: 04/15/2018 REASON FOR CONSULTATION: I was asked to evaluate concerning osteomyelitis of his left toes. HISTORY OF PRESENT ILLNESS: The patient is a 72-year-old who presented to the Emergency Room because of his left third toe wound with odorous drainage. The patient was a poor historian. He stated that he has only had issues for several weeks. It appears, however, that he has had issues with his left first toe requiring amputation and for underlying osteomyelitis in October of this year. He has also had arterial studies and invasive intervention by Interventional Radiology with stenting. He has significant distal blood flow issues. Denies any fever, chills or sweats. He does have peripheral neuropathy. PAST MEDICAL HISTORY: Ray amputation of the left fifth toe along with first toe amputation, hypertension, diabetes, peripheral neuropathy, coronary artery disease and peripheral vascular disease. Left AV fistula placed recently. He has chronic kidney disease. ALLERGIES: None known. MEDICATIONS: As noted on his JUL. He received a dose of vancomycin and Zosyn yesterday in the Emergency Room. FAMILY HISTORY: Noncontributory. SOCIAL HISTORY: Lives with his daughter. REVIEW OF SYSTEMS: The patient denies any headache, change in vision or hearing, oral ulcerations, weight loss, fever, chills or sweats. Denies any cough or sputum production. No chest pain or palpitations. No nausea, vomiting or diarrhea. No dysuria or frequency. A 10-point review of systems other than what was noted above was negative. PHYSICAL EXAMINATION: GENERAL: He was alert and cooperative. Generalized weakness. EYES: Without conjunctivitis or scleral icterus. MOUTH: Without lesion. NECK: Supple. LUNGS: Clear. [facility] [address] [place] [address] CONSULTATION Name: ONURCHRISTINE Kenzie Room #: 423-1 [facility] IN M.R.#: [id number] Admission: 04/14/18 Attend Phys: Fortunato Conti MD Discharge: Date of : 45 Report #: [id number] HEART: Regular, without murmur. ABDOMEN: Soft and nontender. No hepatosplenomegaly or mass. GENITOURINARY: External genitalia unremarkable with no ulcers or masses. EXTREMITIES: Left upper extremity AV fistula site incisions with mild erythema, no drainage. There was palpable thrill and evidence of bruit. Left lower extremity had changes of his previous operations involving amputated first toe and ray amputation of the fifth toe on the left. He had absent pulses in his feet. Bounding popliteal pulse and 3+ pulse in the left femoral region. He had decreased sensation in the foot to touch and position. The second toe was hammertoe deficiency with swelling. The third toe was hammertoe changes with loss of his nail and hammertoe deformity with swelling. There was dry gangrene to the nail bed region. Fourth toe had swelling throughout the base of the toe. NEUROLOGIC: The patient's mood was normal. Cranial nerves intact. Upper extremity strength normal. LABORATORY STUDIES: Reviewed. MRI scan and x-ray reviewed. Culture of the toes is pending. IMPRESSION: Significant peripheral vascular disease with osteomyelitis of his third and fourth toes, underlying coronary artery disease, hypertension, diabetes and peripheral neuropathy. RECOMMENDATIONS: We will continue antibiotic coverage with cefazolin pending further studies. Await arterial studies and surgery evaluation. We will determine length of treatment once surgical approach has been defined. <ELECTRONICALLY SIGNED> By: Raj Funez MD 04/16/18 1245 1706 2142 Raj Funez MD /nt
--- NOTE | ~2018-04-14 | PATH ---
[facility] [address] [place] [address] PATHOLOGY RPT PROCEDURE Name: CHRISTINE ANGULO Kenzie Room #: 225-P [facility] IN M.R.#: [id number] Admission: 04/14/18 Date of : 45 Discharge: 04/19/18 Report #: [id number] Path Case #: [id number] [facility] Accession Number: [id number] . 01 Material submitted: . LEFT 3RD, 4TH AND 5TH TOE . 01 Clinical history: . Osteomyelitis . 02 Diagnosis: Toes, left third, fourth, and fifth toe, amputation of toes: - Surface ulceration along with marked acute inflammation extending into underlying bone associated with acute osteomyelitis involving the fourth toe. - Margins of resection viable and unremarkable on all toes. (IUV:pole classifier; 04/20/2018) MBR/04/20/2018 . 02 Electronically signed: . Caren Cortez MD, Pathologist NPI- [id number] . 01 Gross description: . Received in formalin labeled "Christine Angulo, left 3rd, 4th and 5th toes," are three digit amputation specimens joined by interspace skin and soft tissue. The 3rd toe measures 5.2 x 2.5 x 2.2 cm in greatest dimensions. The bone margin is smooth and concave in appearance, consistent with disarticulation. The nail plate is absent, and the nailbed/distal aspect epidermal surface is occluded by a raised, granular and hall-brown lesion measuring 1.6 x 1.0 x 0.3 cm that extends to within 2.0 cm of the nearest soft tissue margin (plantar). The 3rd toe bone and soft tissue margins are inked black. The 4th toe measures 4.2 x 2.5 x 2.1 cm in greatest dimensions. The bone margin is smooth and concave in appearance, consistent with disarticulation. The nail plate is absent, and the nailbed and distal aspect epidermal surface are occluded by a raised, granular and hall-brown lesion measuring 1.6 x 1.5 x 0.3 cm that extends to within 1.3 cm of the nearest soft tissue margin (plantar). The 4th toe bone and soft tissue margins are inked yellow. The 5th toe measures 5.2 x 2.2 x 1.7 cm in greatest dimensions. The bone margin is smooth and concave in appearance, consistent with disarticulation. The nail plate is absent, and the nailbed is granular and pale hall to hall-brown in appearance. The 5th toe bone and soft tissue margins are inked red. The specimen is submitted representatively as follows: . A1-A3: Left 3rd toe submitted proximal-distal, following decalcification A4-A5: Left 4th toe submitted proximal-distal, following decalcification [address] [address] PATHOLOGY RPT PROCEDURE Name: CHRISTINE ANGULO Room #: 225-P [facility] IN M.R.#: [id number] Admission: 04/14/18 Date of : 45 Discharge: 04/19/18 Report #: [id number] Path Case #: [id number] A6-A8: Left 5th toe submitted proximal-distal, following decalcification (DAC; 04/19/2018) XDC/XDC . 02 Pathologist provided ICD-10: M86.172, L97.529 . 02 CPT . 284539, 426246 Specimen Comment: A courtesy copy of this report has been sent to Specimen Comment: [phone], , . Specimen Comment: Report sent to ,DR BUTTS / DR POLLOCK Specimen Comment: A duplicate report has been generated due to demographic updates. Performed at: [address] [facility] [address], [place], [place] [id number] MD Shawn Gallegos MD Phone: [phone] Performed at: [address] [facility] [address] [id number] MD Caren Cortez MD Phone: [phone]
[~2018-04-14 11:27] MED LIST changes: +CALCITRIOL0.25 MCG PO; +HUMALOG100 UNIT/1 SUBQ; +PLAVIX 75 MG TA75 M1 PO
[2018-04-14 11:28] VITALS: BP 133/54
[2018-04-14 12:46] LABS: ABSOLUTE NEUTROPHILS 8.3 thou/uL (1.4-8.2); BASOPHILS 1.3 % (0.0-2.0); EOSINOPHILS 2.3 % (0.0-3.0); HEMOGLOBIN 10.1 gm/dL (14.0-18.0); LYMPHOCYTES 10.3 % (24.0-44.0); MCH 29.2 pg (26.0-34.0); MCHC 33.6 g/dL (28.0-37.0); MCV 86.9 fL (80.0-100.0); MONOCYTES 6.3 % (1.0-8.0); PLATELET COUNT 235 thou/uL (150-400); POLYS 79.8 % (36.0-66.0); RBC 3.45 mil/uL (4.50-6.00); RDW 13.2 % (10.5-14.5); WBC 10.4 thou/uL (4.0-11.0)
[2018-04-14 12:55] LABS: CALCIUM 9.5 mg/dL (8.5-10.1); CREATININE 4.3 mg/dL (0.7-1.3); POTASSIUM 4.5 mmol/L (3.5-5.1)
[2018-04-14 13:54] VITALS: BP 135/62
[2018-04-14 17:15] VITALS: BP 152/62
[2018-04-14 17:51] VITALS: BP 162/70
[2018-04-14 19:14] VITALS: BP 156/74
[2018-04-15 00:06] LABS: GLYCOHEMOGLOBIN (HGB A1C) 7.6 % (4.8-5.6)
[2018-04-15 05:30] VITALS: BP 127/44
[2018-04-15 06:06] LABS: ABSOLUTE NEUTROPHILS 6.2 thou/uL (1.4-8.2); BASOPHILS 1.7 % (0.0-2.0); EOSINOPHILS 3.9 % (0.0-3.0); HEMATOCRIT 26.4 % (42.0-52.0); HEMOGLOBIN 9.1 gm/dL (14.0-18.0); LYMPHOCYTES 9.6 % (24.0-44.0); MCH 29.8 pg (26.0-34.0); MCHC 34.4 g/dL (28.0-37.0); MCV 86.6 fL (80.0-100.0); MONOCYTES 9.1 % (1.0-8.0); PLATELET COUNT 208 thou/uL (150-400); POLYS 75.7 % (36.0-66.0); RBC 3.05 mil/uL (4.50-6.00); RDW 13.3 % (10.5-14.5); WBC 8.2 thou/uL (4.0-11.0)
[2018-04-15 06:31] LABS: ALBUMIN 2.5 g/dL (3.4-5.0); CALCIUM 8.7 mg/dL (8.5-10.1); CREATININE 4.3 mg/dL (0.7-1.3); MAGNESIUM 1.8 mg/dL (1.8-2.4); POTASSIUM 4.6 mmol/L (3.5-5.1); TOTAL BILIRUBIN 0.3 mg/dL (<0.1-1.0); TOTAL PROTEIN 6.9 g/dL (6.4-8.2)
[2018-04-15 07:45] VITALS: BP 150/63
[2018-04-15 16:00] VITALS: BP 148/51
[2018-04-15 19:51] VITALS: BP 144/89
[2018-04-16 05:13] VITALS: BP 149/39
[2018-04-16 07:20] VITALS: BP 146/53
[2018-04-16 20:32] VITALS: BP 140/54
[2018-04-17 22:34] VITALS: BP 174/70
[2018-04-18 07:35] VITALS: BP 149/60
[2018-04-18 07:56] LABS: ABSOLUTE NEUTROPHILS 6.6 thou/uL (1.4-8.2); BASOPHILS 1.5 % (0.0-2.0); EOSINOPHILS 4.6 % (0.0-3.0); HEMATOCRIT 27.1 % (42.0-52.0); HEMOGLOBIN 9.2 gm/dL (14.0-18.0); LYMPHOCYTES 13.4 % (24.0-44.0); MCH 29.4 pg (26.0-34.0); MCV 86.7 fL (80.0-100.0); MONOCYTES 7.6 % (1.0-8.0); PLATELET COUNT 190 thou/uL (150-400); POLYS 72.9 % (36.0-66.0); RBC 3.12 mil/uL (4.50-6.00); RDW 13.7 % (10.5-14.5); WBC 9.1 thou/uL (4.0-11.0)
[2018-04-18 08:03] LABS: INR 1.1; PROTIME 11.1 Seconds (9.3-11.4)
[2018-04-18 08:04] LABS: ALBUMIN 2.4 g/dL (3.4-5.0); CALCIUM 8.7 mg/dL (8.5-10.1); CREATININE 3.6 mg/dL (0.7-1.3); MAGNESIUM 1.8 mg/dL (1.8-2.4); POTASSIUM 4.3 mmol/L (3.5-5.1); TOTAL BILIRUBIN 0.2 mg/dL (<0.1-1.0); TOTAL PROTEIN 6.9 g/dL (6.4-8.2)
[2018-04-18 08:33] LABS: FOLIC ACID 4.8 ng/mL (8.6-58.9)
[2018-04-19 00:30] VITALS: BP 189/73
[2018-04-19 07:35] VITALS: BP 174/79
[2018-04-19 09:42] LABS: ABSOLUTE NEUTROPHILS 8.8 thou/uL (1.4-8.2); BASOPHILS 1.1 % (0.0-2.0); EOSINOPHILS 2.2 % (0.0-3.0); HEMATOCRIT 27.2 % (42.0-52.0); HEMOGLOBIN 9.2 gm/dL (14.0-18.0); LYMPHOCYTES 10.1 % (24.0-44.0); MCH 29.6 pg (26.0-34.0); MCHC 33.7 g/dL (28.0-37.0); MCV 87.8 fL (80.0-100.0); MONOCYTES 9.1 % (1.0-8.0); PLATELET COUNT 173 thou/uL (150-400); POLYS 77.5 % (36.0-66.0); RDW 13.7 % (10.5-14.5); WBC 11.4 thou/uL (4.0-11.0)
[2018-04-19 14:51] VITALS: BP 174/79
[2018-04-19] MEDS ORDERED: AUGMENTIN 500-1 EACH PO (16:15)
[2018-04-19] MEDS ORDERED: ACETAMINOPHEN325 M1 PO (16:15)
[2018-04-19 16:56] VITALS: BP 174/79
== END 2018-04-19 18:14 | disposition home health service (06) | DRG 616 ==
LOC: ER 11:27 → SICU 13:41 → EROBS 13:41 → 4E 13:41 → SICU 04-17 19:47
PROVIDERS: Emergency Medicine; Internal Medicine; Orthopaedic Surgery Hand Surgery
PROC: 0Y6Y0Z1 Detachment at Left 5th Toe, High, Open Approach (ICD-10-PCS; principal; 2018-04-18)
PROC: 0Y6W0Z1 Detachment at Left 4th Toe, High, Open Approach (ICD-10-PCS; principal; 2018-04-18)
PROC: 0Y6U0Z1 Detachment at Left 3rd Toe, High, Open Approach (ICD-10-PCS; principal; 2018-04-18)
DX: E11.69 Type 2 diabetes mellitus with other specified complication (principal); E43 Unspecified severe protein-calorie malnutrition; E11.52 Type 2 diabetes mellitus with diabetic peripheral angiopathy with gangrene; I12.0 Hypertensive chronic kidney disease with stage 5 chronic kidney disease or end stage renal disease; M86.8X7 Other osteomyelitis, ankle and foot; G93.49 Other encephalopathy; N18.5 Chronic kidney disease, stage 5; E78.00 Pure hypercholesterolemia, unspecified; E11.621 Type 2 diabetes mellitus with foot ulcer; E11.22 Type 2 diabetes mellitus with diabetic chronic kidney disease; L97.529 Non-pressure chronic ulcer of other part of left foot with unspecified severity; D64.9 Anemia, unspecified; I25.10 Atherosclerotic heart disease of native coronary artery without angina pectoris; Z79.899 Other long term (current) drug therapy; Z95.1 Presence of aortocoronary bypass graft; Z87.891 Personal history of nicotine dependence; Z89.412 Acquired absence of left great toe; Z89.422 Acquired absence of other left toe(s); Z95.820 Peripheral vascular angioplasty status with implants and grafts; Z79.4 Long term (current) use of insulin; Z79.82 Long term (current) use of aspirin; Z68.26 Body mass index [BMI] 26.0-26.9, adult; Z28.21 Immunization not carried out because of patient refusal
CPT/HCPCS: 10084; 15002; 50010; 50101; 50386; 50445; 50951; 51412; 56525; 57091; 70005

== ENCOUNTER → 2018-05-10 | Outpatient (CLI) | payer OTHER ==
[~2018-05-10] MED LIST changes: +AUGMENTIN 500-1 EACH PO
== END ==
LOC: HYPER 04-18 15:27
DX: T87.89 Other complications of amputation stump (principal); E11.621 Type 2 diabetes mellitus with foot ulcer; I70.245 Atherosclerosis of native arteries of left leg with ulceration of other part of foot; L97.521 Non-pressure chronic ulcer of other part of left foot limited to breakdown of skin; L84 Corns and callosities; E78.00 Pure hypercholesterolemia, unspecified; I10 Essential (primary) hypertension; Z79.4 Long term (current) use of insulin; Z87.891 Personal history of nicotine dependence; Y83.5 Amputation of limb(s) as the cause of abnormal reaction of the patient, or of later complication, without mention of misadventure at the time of the procedure

== ENCOUNTER → 2018-07-18 | Outpatient (CLI) | payer OTHER | LOC: SEN 08:45 → RAD 08:45 | DX: J18.9 Pneumonia, unspecified organism (principal) ==

== ENCOUNTER → 2018-08-05 | Outpatient (CLI) | payer OTHER | LOC: SEN 09:07 | DX: F03.90 Unspecified dementia, unspecified severity, without behavioral disturbance, psychotic disturbance, mood disturbance, and anxiety (principal); E13.9 Other specified diabetes mellitus without complications; R82.90 Unspecified abnormal findings in urine; I10 Essential (primary) hypertension; E78.00 Pure hypercholesterolemia, unspecified; Z76.0 Encounter for issue of repeat prescription; Z79.4 Long term (current) use of insulin; Z79.899 Other long term (current) drug therapy; Z82.49 Family history of ischemic heart disease and other diseases of the circulatory system; Z83.3 Family history of diabetes mellitus ==